=== PATIENT | female | born 1985 | race Caucasian/White ===

== ENCOUNTER 2016-06-24 19:41 | Observation (INO) | payer MEDICAID ==
[2016-06-24] MEDS ORDERED: ONDANSETRON 4 MG/2 ML VIAL IVP ONE (20:00)
[2016-06-24] MEDS ORDERED: LR 1,000 ML IV ONE (20:00)
[2016-06-24] MEDS ORDERED: D5W LR 1,000 ML IV SCH (20:30)
[2016-06-24 21:46] LABS: ADD DIFF? YES; ADD MORPH? NO; ADD SCAN? NO; ATYPICAL LYMPHOCYTE FLAG 30 (0-99); FRAGMENT RBC FLAG 0 (0-99); HEMATOCRIT 36.3 % (38.0-47.0); HEMOGLOBIN 12.4 g/dL (12.6-16.3); LEFT SHIFT FLG 20 (0-99); LIPEMIA HEMOLYSIS FLAG 90 (0-99); MEAN CELL HEMOGLOBIN 32.5 pg (27.9-34.1); MEAN CELL HEMOGLOBIN CONCENTR. 34.2 g/dL (32.4-36.7); MEAN CELL VOLUME 95.3 fL (81.5-99.8); MEAN PLATELET VOLUME 11.3 fL (8.7-11.7); PLATELET CLUMPS FLAG 10 (0-99); PLATELET COUNT 289 10^3/uL (150-400); RED BLOOD CELL COUNT 3.81 10^6/uL (4.18-5.33); RED CELL DISTRIBUTION WIDTH 14.2 % (11.5-15.2)
[2016-06-24 21:50] LABS: ANION GAP 6 mEq/L (8-16); CALCIUM 8.8 mg/dL (8.5-10.4); CARBON DIOXIDE 22 mEq/l (22-31); CHLORIDE 105 mEq/L (97-110); CREATININE 0.5 mg/dL (0.6-1.0); GLOMERULAR FILTRATION RATE > 60; GLUCOSE 72 mg/dL (70-100); POTASSIUM 3.9 mEq/L (3.5-5.2); SODIUM 133 mEq/L (134-144)
[2016-06-24 22:27] LABS: PLATELET ESTIMATE ADEQUATE (ADEQ)
== END 2016-06-24 22:23 | disposition home or self-care (01) ==
LOC: INTOOBSV 19:41 → FLD 19:41
PROVIDERS: ADMIT Obstetrics & Gynecology; ATTEND Obstetrics & Gynecology
DX: O21.9 Vomiting of pregnancy, unspecified (principal); Z3A.00 Weeks of gestation of pregnancy not specified
CPT/HCPCS: G0378 ×2; J2405

== ENCOUNTER 2016-07-09 05:00 | Inpatient (IN) | payer MEDICAID ==
[2016-07-09] MEDS ORDERED: TERBUTALINE SULFATE 1 MG/ML VIAL IV PRN (05:53)
[2016-07-09] MEDS ORDERED: LR 1,000 ML IV PRN (05:53)
[2016-07-09] MEDS ORDERED: OXYTOCIN/RINGERS LACTATE 1,000 ML IV PRN (05:53)
[2016-07-09] MEDS ORDERED: IBUPROFEN 600 MG TAB PO ONE (05:58)
--- NOTE | 2016-07-09 06:05 | OBPROC ---
- Labor and Delivery Onset of Contractions Date: 07/09/16 Onset of Contractions Time: 03:00 Onset of Contractions Type: Spontaneous Rupture of Membranes Date: 07/09/16 Rupture of Membranes Time: 03:00 Rupture of Membranes Type: Spontaneous Amniotic Fluid Color: Clear Dilation Complete Time: 05:12 Delivery Type: Spontaneous Placenta Delivery Date: 07/09/16 Placenta Delivery Time: 05:40 Episiotomy/Laceration: Other (Specify) (none) EBL: 400 Complications: None - Medications Labor Augmentation/Induction Meds Used: None Anesthesia: Other (Specify) (none) - Java Info Infant A Delivery Date: 07/09/16 Delivery Time: 05:26 Sex of : Male (Harjit) Score (1 Min): 8 Score (5 Min): 9
[2016-07-09 06:10] LABS: ADD DIFF? YES; ADD MORPH? NO; ADD SCAN? NO; ATYPICAL LYMPHOCYTE FLAG 10 (0-99); FRAGMENT RBC FLAG 0 (0-99); HEMATOCRIT 38.6 % (38.0-47.0); HEMOGLOBIN 13.1 g/dL (12.6-16.3); LEFT SHIFT FLG 10 (0-99); LIPEMIA HEMOLYSIS FLAG 90 (0-99); MEAN CELL HEMOGLOBIN 32.5 pg (27.9-34.1); MEAN CELL HEMOGLOBIN CONCENTR. 33.9 g/dL (32.4-36.7); MEAN CELL VOLUME 95.8 fL (81.5-99.8); MEAN PLATELET VOLUME 11.2 fL (8.7-11.7); PLATELET CLUMPS FLAG 10 (0-99); PLATELET COUNT 357 10^3/uL (150-400); RED BLOOD CELL COUNT 4.03 10^6/uL (4.18-5.33); RED CELL DISTRIBUTION WIDTH 14.2 % (11.5-15.2)
[2016-07-09] MEDS: HYDROCODONE/APAP 5/325 TAB PO PRN ×3 (06:16→19:21)
[2016-07-09] MEDS: IBUPROFEN 600 MG TAB PO PRN ×3 (06:16→19:21)
[2016-07-09 06:52] LABS: LARGE PLATELETS PRESENT; MACROCYTES 1+; PLATELET ESTIMATE ADEQUATE (ADEQ)
--- NOTE | 2016-07-09 07:12 | GHP ---
[f rep st] HISTORY AND PHYSICAL DATE OF ADMISSION: 07/09/2016 on the obstetrics service. HISTORY UPON ADMISSION: The patient is a 30-year-old G7, P5, A1, who presented to Labor and Delivery completely dilated after rapid progression of labor. The patient had spontaneous onset of contractions that she states were pretty mild at approximately midnight. They really increased in intensity approximately 3 a.m. The patient remembers having small leakage with coughing at home; however , no abrupt rupture of membranes. The intensity increases approximately 3 a.m. likely with spontaneous rupture of membranes. The patient was having some bloody show upon admission as well. On initial exam, the patient was completely dilated at +3 station. Preparations were made for immediate delivery. COURSE: The patient has been with [facility] since 11 weeks ' gestation. The patient's has been bothered quite a bit by nausea and vomiting, for which the patient has taken Diclegis and Zofran throughout much of the . The patient had a 20-week ultrasound, which showed an echogenic focus in the left ventricle; however, the patient had verified testing and this was negative. The patient was noted to be anemic in mid and was advised to take iron; however, did not initiate that. Her hematocrit at 36 weeks was 36%. The patient's blood type is negative and the patient did receive RhoGAM at 28 weeks. The patient also was taking Zantac for heartburn in the . Also, with the heartburn causing nausea, the patient was using Zofran occasionally, as well as Phenergan at night. LABORATORY DATA: The patient's blood type is A negative with negative antibody screen. RPR nonreactive. Rubella immune. Hepatitis B surface antigen negative. HIV negative. Urinalysis and culture were negative. Pap smear normal. Gonorrhea and chlamydia were negative. 1-hour Glucola was normal. The RhoGAM was given at 28 weeks. GBS culture was negative. PAST MEDICAL HISTORY: Mild asthma and she occasionally uses an inhaler. PAST SURGICAL HISTORY: Negative. OBSTETRIC HISTORY: In December 2005 a term vaginal delivery of a male at 6 pounds 8 ounces. In 2006 a missed AB. January 2008 term vaginal delivery of a male at 8 pounds 13 ounces. In September 2009 a term vaginal delivery at 8 pounds 12 ounces. In February 2012 a term vaginal delivery of a viable female at 8 pounds 3 ounces. In May 2014 a term vaginal delivery of a viable female. ALLERGIES: The patient has no known drug allergies. CURRENT MEDICATIONS: Only vitamins. SOCIAL HISTORY: The patient is , lives with her Marlon who is a [id number] dad. The patient is a nonsmoker. No alcohol or drug use. PHYSICAL EXAM: GENERAL: Upon admission, the patient was in significant distress with complete dilation and ready to push. VITAL SIGNS: Initial vital signs were within the normal limits. See nursing documentation for details. heart tones showed reactive reassuring heart tones. Vaginal exam as noted above with complete dilation at +3 station. EXTREMITIES: Nontender. ASSESSMENT: Intrauterine at 39+ weeks' gestation, active labor and ready for delivery upon admission. GBS negative. Grand multiparous. Negative Verifi testing. PLAN: Preparations made for immediate delivery. IV was started for potential increased bleeding after delivery. /[id number]/MODL MTDD
[2016-07-09] MEDS: DOCUSATE SODIUM 100 MG CAP PO PRN (19:21)
[2016-07-10] MEDS: HYDROCODONE/APAP 5/325 TAB PO PRN ×4 (00:22→20:42)
[2016-07-10] MEDS: IBUPROFEN 600 MG TAB PO PRN ×4 (01:55→20:41)
[2016-07-10] MEDS: DOCUSATE SODIUM 100 MG CAP PO PRN (09:52)
--- NOTE | 2016-07-10 17:49 | SOAPPROG ---
SOAP Progress Note Assessment/Plan: Assessment: ppd# 1 s/p breast feeding Plan: routine post care 07/10/16 17:37 Subjective: patient is doing well. pain is well controlled. normal lochia. denies headache and changes in vision. will go home tomorrow after baby is circumcised. Objective: Vital Signs Temp Pulse Resp BP Pulse Ox 36.6 C 85 18 119/73 97 07/10/16 09:30 07/10/16 09:30 07/10/16 09:30 07/10/16 09:30 07/10/16 09:30 Laboratory Results 07/09/16 05:20 Physical Exam - Physical Exam General Appearance: WD/WN, alert, no apparent distress Respiratory: chest non-tender, lungs clear, normal breath sounds Cardiac/Chest: normal peripheral pulses, regular rate, rhythm Abdomen: normal bowel sounds, non-tender, soft, other (fundus firm and non tender) Skin: normal color, warm/dry Extremities: normal range of motion, non-tender, normal inspection, normal capillary refill Neuro/Psych: no motor/sensory deficits, alert, normal mood/affect, oriented x 3 ICD10 Worksheet Patient Problems: Problems Problem Status Onset Spontaneous vaginal delivery Acute
[2016-07-11] MEDS: HYDROCODONE/APAP 5/325 TAB PO PRN ×3 (02:50→11:55)
[2016-07-11 03:08] VITALS: RESP 16; O2SAT 99
[2016-07-11] MEDS: IBUPROFEN 600 MG TAB PO PRN ×2 (06:10→11:56)
[2016-07-11] MEDS: DOCUSATE SODIUM 100 MG CAP PO PRN (07:56)
[2016-07-11 08:47] VITALS: BP 129/72; PULSE 82; TEMP 97.8
--- NOTE | 2016-07-11 09:34 | OBPROG ---
OBG Progress Note Assessment/Plan: Assessment: 30 y/o PPD #2 s/p doing well. Plan: D/c home with Ibuprofen and [place]. Follow-up @ [facility] @ 4 and 6 weeks. 07/11/16 09:31 Subjective: Pt is doing well today. She is having good pain control using both Ibuprofen and [place], but feels baby may be too sleepy due to the Ver[place] and is having difficulties nursing. She will javid off. Her milk is transitioning and otherwise she feels good with min lochis, sam reg diet and is ready to d/c home. Objective: 07/09/16 05:20 Patient ABO/Rh A NEGATIVE 07/09/16 05:20 Temp Pulse Resp BP Pulse Ox 36.6 C 82 16 129/72 H 99 07/11/16 08:00 07/11/16 08:00 07/11/16 08:00 07/11/16 08:00 07/11/16 08:00 Uterine Position/Fundal Height: Umbilicus -2 Uterine Tone: Firm - Physical Exam General Appearance: WD/WN, alert, no apparent distress Neck: non-tender, full range of motion, supple Respiratory: chest non-tender, lungs clear, normal breath sounds Cardiac/Chest: regular rate, rhythm Abdomen: normal bowel sounds Extremities: swelling (no), Pete's sign (neg) ICD10 Worksheet Patient Problems: Problems Problem Status Onset Spontaneous vaginal delivery Acute
== END 2016-07-11 12:00 | disposition home or self-care (01) | DRG 775 ==
LOC: FLD 05:00 → FOB 09:24
PROVIDERS: ADMIT Obstetrics & Gynecology; ATTEND Obstetrics & Gynecology
PROC: 10E0XZZ Delivery of Products of Conception, External Approach (ICD-10-PCS; principal; 2016-07-09)
DX: O99.03 Anemia complicating the puerperium (principal); O09.43 Supervision of pregnancy with grand multiparity, third trimester; Z3A.39 39 weeks gestation of pregnancy; Z37.0 Single live birth

== ENCOUNTER 2017-07-24 17:23 | Emergency (ER) | payer MEDICAID ==
[2017-07-24 17:29] VITALS: TEMP 97.5
[2017-07-24 18:06] VITALS: O2SAT 94
[2017-07-24] MEDS ORDERED: IPRATROPIUM/ALBUTEROL 3 ML DEYVIAL ONE (18:19)
[2017-07-24] MEDS ORDERED: IPRATROPIUM/ALBUTEROL 3 ML DEYVIAL IH ONE (18:21)
[2017-07-24] MEDS ORDERED: predniSONE 20 MG TAB PO ONE (18:34)
--- NOTE | 2017-07-24 18:35 | EDPHY ---
H & P Stated Complaint: SHORT OF BREATH Time Seen by Provider: 07/24/17 18:08 HPI/ROS: CHIEF COMPLAINT: Asthma exacerbation HISTORY OF PRESENT ILLNESS: Patient is a 31-year-old female who comes to the emergency department complaining wheezing and asthma exacerbation. She states that she does not have her albuterol with her. Her symptoms began around 4 o' clock. She has not had a fever cough or runny nose or sore throat. She denies chest pain. REVIEW OF SYSTEMS: Constitutional: denies: chills, fever, recent illness, recent injury EENTM: denies: blurred vision, double vision, nose congestion Respiratory: See HPI Cardiac: denies: chest pain, irregular heart rate, lightheadedness, palpitations Gastrointestinal/Abdominal: denies: abdominal pain, diarrhea, nausea, vomiting, blood streaked stools Genitourinary: denies: dysuria, frequency, hematuria, pain Musculoskeletal: denies: joint pain, muscle pain Skin: denies: lesions, rash, jaundice, bruising Neurological: denies: headache, numbness, paresthesia, tingling, dizziness, weakness Hematologic/Lymphatic: denies: blood clots, easy bleeding, easy bruising Immunologic/allergic: denies: HIV/AIDS, transplant EXAM: GENERAL: Well-appearing, well-nourished and in no acute distress. HEAD: Atraumatic, normocephalic. EYES: Pupils equal round and reactive to light, extraocular movements intact, sclera anicteric, conjunctiva are normal. ENT: TMs normal, nares patent, oropharynx clear without exudates. Moist mucous membranes. NECK: Normal range of motion, supple without lymphadenopathy or JVD. LUNGS: Bilateral wheezing, HEART: Regular rate and rhythm without murmurs, rubs or gallops. ABDOMEN: Soft, nontender, normoactive bowel sounds. No guarding, no rebound. No masses appreciated. BACK: No CVA tenderness, no spinal tenderness, step-offs or deformities EXTREMITIES: Normal range of motion, no pitting or edema. No clubbing or cyanosis. NEUROLOGICAL: Cranial nerves II through XII grossly intact. Normal speech, normal gait. 5/5 strength, normal movement in all extremities, normal sensation PSYCH: Normal mood, normal affect. SKIN: Warm, dry, normal turgor, no visible rashes or lesions. Source: Patient Exam Limitations: No limitations - Personal History LMP (Females 10-55): 22-28 Days Ago Current Tetanus/Diphtheria Vaccine: Yes Current Tetanus Diphtheria and Acellular Pertussis (TDAP): Yes Tetanus Vaccine Date: 03/23/14 - Medical/Surgical History Hx Asthma: Yes Hx Chronic Respiratory Disease: No Hx Diabetes: No Hx Cardiac Disease: No Hx Renal Disease: No Hx Cirrhosis: No Hx Alcoholism: No Hx HIV/AIDS: No Hx Splenectomy or Spleen Trauma: No Other PMH: childbirth,asthma - Family History Significant Family History: No pertinent family hx - Social History Smoking Status: Never smoked Alcohol Use: Sober Drug Use: None Constitutional: Initial Vital Signs Temperature (C) 36.4 C 07/24/17 17:25 Heart Rate 102 H 07/24/17 17:25 Respiratory Rate 17 07/24/17 17:25 Blood Pressure 137/115 H 07/24/17 17:25 O2 Sat (%) 100 07/24/17 17:25 O2 Delivery Mode Room Air Allergies/Adverse Reactions: No Known Allergies Allergy (Verified 08/01/15 11:17) Home Medications: Medication Instructions Recorded Amoxicillin Trihydrate 500 mg PO TID 10 Days cap 08/01/15 [Amoxicillin] Hydrocodone/APAP 5/325 [[place] 1 - 2 tab PO Q4HRS PRN #30 tab 07/11/16 5/325 (*)] Ibuprofen [Motrin (*)] 600 mg PO Q6HRS PRN #30 tab 07/11/16 predniSONE 60 mg PO DAILY #9 tab 07/24/17 Medical Decision Making - Diagnostics Imaging: Discussed imaging studies w/ bingo caller Radiologist ED Course/Re-evaluation: Patient feels much better after albuterol. Will give her a take-home as well as a 3 day course of steroids. She is happy and agrees with this plan. Differential Diagnosis: Partial list of the Differential diagnosis considered include but were not limited to; asthma exacerbation, upper respiratory tract infection and although unlikely based on the history and physical exam, I also considered pneumonia, PE, pneumothorax. I discussed these differential diagnoses and the plan with the patient as well as the usual and expected course. The patient understands that the diagnosis is provisional and that in medicine we are not always correct and that further workup is often warranted. Usual and customary warnings were given. All of the patient's questions were answered. The patient was instructed to return to the emergency department should the symptoms at all worsen or return, otherwise to followup with the physician as we discussed. - Data Points Medications Given: Discontinued Medications Albuterol Sulfate (Proventil Inh Prepack) 1 mdi TAKEHOME EDNOW ONE Stop: 07/24/17 19:03 Last Admin: 07/24/17 19:16 Dose: 1 mdi Albuterol/Ipratropium (Duoneb) 3 ml IH EDNOW ONE Stop: 07/24/17 18:22 Last Admin: 07/24/17 18:34 Dose: 3 ml Prednisone (Prednisone) 60 mg PO EDNOW ONE Stop: 07/24/17 18:35 Last Admin: 07/24/17 18:36 Dose: 60 mg Departure - Departure Disposition: Home, Routine, Self-Care Clinical Impression: Exacerbation of asthma Qualifiers: Asthma severity: moderate Asthma persistence: unspecified Qualified Code(s): J45.901 - Unspecified asthma with (acute) exacerbation Condition: Fair Instructions: Albuterol (By breathing), Asthma (ED) Referrals: NONE *PRIMARY CARE P,. [Primary Care Provider] - As per Instructions Ashley Reid MD [Medical Doctor] - As per Instructions Prescriptions: predniSONE 60 mg PO DAILY #9 tab
[2017-07-24 18:47] VITALS: BP 128/80; PULSE 87; RESP 18
[2017-07-24] MEDS ORDERED: ALBUTEROL INH PREPACK MDI TAKEHOME ONE (19:02)
== END 2017-07-24 19:22 | disposition home or self-care (01) ==
DX: J45.901 Unspecified asthma with (acute) exacerbation (principal)
CPT/HCPCS: J7512